=== PATIENT | female | born 1965 | race Caucasian/White ===

== ENCOUNTER 2016-09-26 07:01 | Inpatient (IN) | payer BC, MEDICAID ==
[~2016-09-26] VITALS: Ht 165.1 cm; Wt 53.2 kg
[2016-09-26 08:16] LABS: BASOPHIL % 0.6 % (0-2); PLATELET COUNT 274 x10^3mcL (130-400); RED CELL DISTRIBUTION WIDTH 13.7 % (11.5-14.5)
[2016-09-26 08:22] LABS: CALCIUM 8.3 mg/dL (8.5-10.1); CARBON DIOXIDE 26.4 mmol/L (21-32); CHLORIDE SERUM 104 mmol/L (98-107); CREATININE SERUM 0.9 mg/dL (0.6-1.0); GFR1 > 60 mL/min; GLUCOSE SERUM 91 mg/dL (74-106); POTASSIUM SERUM 3.6 mmol/L (3.5-5.1); SODIUM SERUM 139 mmol/L (136-145)
[2016-09-26 08:26] LABS: ALBUMIN 3.5 g/dL (3.4-5.0); ALKALINE PHOSPHATASE 92 U/L (46-116); ALT/SGPT 20 U/L (14-59); AST/SGOT 32 U/L (15-37); LIPASE 121 IU/L (73-393); TOTAL PROTEIN, SERUM 7.1 g/dL (6.4-8.2)
[2016-09-26 09:55] LABS: T3 TOTAL 0.96 ng/mL
[2016-09-26 10:09] LABS: MAGNESIUM 1.7 mg/dL (1.8-2.4); PHOSPHOROUS 4.2 mg/dL (2.5-4.9)
[2016-09-26 10:12] LABS: UA SPECIFIC GRAVITY >=1.030 (1.005-1.035); microscopic required? YES; urine erythrocyte TRACE (NEGATIVE)
[2016-09-26 10:18] LABS: FREE T4 0.9 ng/dL (0.76-1.46); FREE THYROXINE INDEX 2.1 ug/dL (1.4-4.5); T4(THYROXINE) 5.4 ug/dL (4.7-13.3)
[2016-09-26 11:13] VITALS: BP 121/77
[2016-09-26 12:22] VITALS: BP 121/71
[2016-09-26 14:30] VITALS: BP 125/77
[2016-09-26 17:13] LABS: AMPHETAMINE QUAL UR NONE DETECTED (NEG <=1000)
[2016-09-26 17:39] VITALS: BP 110/68
[2016-09-26 21:38] VITALS: BP 133/69
[2016-09-27 05:26] VITALS: BP 106/67
[2016-09-27 07:13] LABS: BASOPHIL % 0.6 % (0-2); PLATELET COUNT 230 x10^3mcL (130-400); RED CELL DISTRIBUTION WIDTH 14.1 % (11.5-14.5)
[2016-09-27 08:00] LABS: CALCIUM 8.3 mg/dL (8.5-10.1); CARBON DIOXIDE 26.4 mmol/L (21-32); CHLORIDE SERUM 105 mmol/L (98-107); CREATININE SERUM 0.8 mg/dL (0.6-1.0); GFR1 > 60 mL/min; GLUCOSE SERUM 104 mg/dL (74-106); MAGNESIUM 2.3 mg/dL (1.8-2.4); PHOSPHOROUS 3.4 mg/dL (2.5-4.9); POTASSIUM SERUM 4.4 mmol/L (3.5-5.1); SODIUM SERUM 138 mmol/L (136-145)
[2016-09-27 08:27] VITALS: BP 100/69
[2016-09-27 12:20] VITALS: BP 101/69
[2016-09-27 17:44] VITALS: BP 133/91
[2016-09-27 21:16] VITALS: BP 133/47
[2016-09-27 21:56] VITALS: BP 115/84
[2016-09-28 05:23] VITALS: BP 121/77
[2016-09-28 06:44] LABS: CALCIUM 8.3 mg/dL (8.5-10.1); CARBON DIOXIDE 23.8 mmol/L (21-32); CHLORIDE SERUM 110 mmol/L (98-107); CREATININE SERUM 0.5 mg/dL (0.6-1.0); GFR1 > 60 mL/min; GLUCOSE SERUM 86 mg/dL (74-106); MAGNESIUM 2.2 mg/dL (1.8-2.4); PHOSPHOROUS 3.4 mg/dL (2.5-4.9); SODIUM SERUM 137 mmol/L (136-145)
[2016-09-28 07:08] LABS: BASOPHIL % 0.4 % (0-2); PLATELET COUNT 227 x10^3mcL (130-400)
[2016-09-28 09:52] VITALS: BP 132/82
[2016-09-28 10:24] VITALS: Ht 165.1 cm; Wt 53.2 kg
[2016-09-28] MEDS ORDERED: FLA500 PO (17:11)
[2016-09-28] MEDS ORDERED: OMEPRAZOLE40 M1 PO (17:13)
[2016-09-28 17:19] VITALS: BP 132/82
[2016-09-28] MEDS ORDERED: CAR1 PO (17:20)
== END 2016-09-28 18:30 | disposition home or self-care (01) | DRG 391 ==
LOC: ED 07:01 → DU 09:10 → MU 09:10 → DU 10:16 → MU 09-28 10:25
PROVIDERS: Emergency Medicine; Internal Medicine; ADMIT Family Medicine
PROC: 0DBP8ZX Excision of Rectum, Via Natural or Artificial Opening Endoscopic, Diagnostic (ICD-10-PCS; 2016-09-28)
PROC: 0DB98ZX Excision of Duodenum, Via Natural or Artificial Opening Endoscopic, Diagnostic (ICD-10-PCS; principal; 2016-09-28 12:30)
PROC: 0DBH8ZX Excision of Cecum, Via Natural or Artificial Opening Endoscopic, Diagnostic (ICD-10-PCS; 2016-09-28 12:30)
DX: K21.9 Gastro-esophageal reflux disease without esophagitis (principal); N17.0 Acute kidney failure with tubular necrosis; Z68.1 Body mass index [BMI] 19.9 or less, adult; M94.0 Chondrocostal junction syndrome [Tietze]; K29.70 Gastritis, unspecified, without bleeding; K29.80 Duodenitis without bleeding; F17.200 Nicotine dependence, unspecified, uncomplicated; I25.9 Chronic ischemic heart disease, unspecified; F10.20 Alcohol dependence, uncomplicated; Y90.9 Presence of alcohol in blood, level not specified; R00.1 Bradycardia, unspecified; E78.1 Pure hyperglyceridemia; D75.89 Other specified diseases of blood and blood-forming organs; M51.37 Other intervertebral disc degeneration, lumbosacral region; E83.42 Hypomagnesemia; K27.9 Peptic ulcer, site unspecified, unspecified as acute or chronic, without hemorrhage or perforation; R63.4 Abnormal weight loss; K52.9 Noninfective gastroenteritis and colitis, unspecified; R31.9 Hematuria, unspecified
CPT/HCPCS: 43235; 45378; 82962; 83880; 84439; 87046; 87046-59; 99406; G0480; J1200; J1610; J1885; J2250; J2270; J2310; J2405; J3010; J3360; J3490; J7030; Q0092

== ENCOUNTER 2018-01-31 04:15 | Emergency (ER) | payer OTHER, MEDICAID ==
[~2018-01-31] VITALS: Ht 165.1 cm; Wt 52.2 kg
[~2018-01-31 04:15] MED LIST: CAR1 PO; FLA500 PO; OMEPRAZOLE40 M1 PO
[2018-01-31 04:42] LABS: BASOPHIL % 1.1 % (0-2); PLATELET COUNT 371 x10^3mcL (130-400); RED CELL DISTRIBUTION WIDTH 12.4 % (11.5-14.5)
[2018-01-31 04:50] LABS: CALCIUM 8.9 mg/dL (8.5-10.1); CARBON DIOXIDE 27.8 mmol/L (21-32); CHLORIDE SERUM 103 mmol/L (98-107); CREATININE SERUM 0.9 mg/dL (0.6-1.0); GFR1 > 60 mL/min; GLUCOSE SERUM 113 mg/dL (74-106); SODIUM SERUM 139 mmol/L (136-145)
[2018-01-31 04:55] LABS: ALKALINE PHOSPHATASE 89 U/L (46-116); ALT/SGPT 22 U/L (14-59); AST/SGOT 17 U/L (15-37); BILIRUBIN TOTAL 0.29 mg/dL (0.20-1.00); TOTAL PROTEIN, SERUM 7.5 g/dL (6.4-8.2)
[2018-01-31 05:28] VITALS: BP 90/61
== END 2018-01-31 05:28 | disposition home or self-care (01) ==
LOC: ED 04:15
PROVIDERS: Emergency Medicine
DX: R07.89 Other chest pain (principal)
CPT/HCPCS: 36415; 83880; Q0092